=== PATIENT | male | born 1990 | race Caucasian/White ===

== ENCOUNTER 2020-07-01 01:55 | Emergency (ER) | payer OTHER ==
[~2020-07-01] VITALS: Ht 188 cm; Wt 108.4 kg
[2020-07-01 02:05] VITALS: Ht 188 cm; Wt 108.4 kg
[2020-07-01 04:11] LABS: microscopic required? YES; urine erythrocyte 1+ (NEGATIVE)
[2020-07-01 04:37] VITALS: BP 124/78
== END 2020-07-01 04:37 | disposition home or self-care (01) ==
LOC: ED 01:55
PROVIDERS: Emergency Medicine
DX: N50.812 Left testicular pain (principal); N50.89 Other specified disorders of the male genital organs; I10 Essential (primary) hypertension
CPT/HCPCS: 87491; 87591; Q0092